=== PATIENT | female | born 2000 | race Caucasian/White ===

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

== ENCOUNTER 2021-01-07 17:00 | Emergency (ER) | payer OTHER, MEDICAID ==
[~2021-01-07] VITALS: Ht 154.9 cm; Wt 73.9 kg
[~2021-01-07 17:00] MED LIST changes: +REGLAN 10 MG TA10 MG PO
[2021-01-07] MEDS ORDERED: KEPPRA750 MG PO (17:21)
[2021-01-07] MEDS ORDERED: ENBRACE HR SOF1 EACH PO (17:21)
[2021-01-07 17:42] LABS: URINE BLOOD NEGATIVE (Negative); URINE CLARITY CLEAR; URINE COLOR YELLOW; URINE GLUCOSE-RANDOM TRACE (Negative); URINE KETONES 2+ (Negative); URINE LEUKOCYTES-REFLEX NEGATIVE (Negative); URINE NITRITE-REFLEX NEGATIVE (Negative); URINE PROTEIN TRACE (Negative); URINE SPECIFIC GRAVITY >= 1.030 (1.005-1.030); URINE UROBILINOGEN 0.2 E.U./dl (0.2-1.0)
[2021-01-07 17:47] LABS: ICTOTEST (BILI CONFIRMATORY) Negative (Negative); URINE BILIRUBIN 1+ (Negative)
[2021-01-07 18:08] VITALS: BP 125/65
== END 2021-01-07 18:08 | disposition home or self-care (01) ==
LOC: M.ERS 17:00
PROVIDERS: Nurse Practitioner Psychiatric/Mental Health
DX: O98.312 Other infections with a predominantly sexual mode of transmission complicating pregnancy, second trimester (principal); A56.8 Sexually transmitted chlamydial infection of other sites; F41.9 Anxiety disorder, unspecified; F32.9 Major depressive disorder, single episode, unspecified; Z3A.23 23 weeks gestation of pregnancy; Z79.899 Other long term (current) drug therapy; Z91.040 Latex allergy status; Z91.018 Allergy to other foods

== ENCOUNTER 2021-02-03 15:53 | Emergency (ER) | payer OTHER, MEDICAID ==
[~2021-02-03] VITALS: Ht 154.9 cm; Wt 69.0 kg
[~2021-02-03 15:53] MED LIST changes: +ENBRACE HR SOF1 EACH PO; +KEPPRA750 MG PO
[2021-02-03 16:21] LABS: URINE BILIRUBIN NEGATIVE (Negative); URINE BLOOD NEGATIVE (Negative); URINE CLARITY CLEAR; URINE COLOR YELLOW; URINE GLUCOSE-RANDOM NEGATIVE (Negative); URINE KETONES 3+ (Negative); URINE LEUKOCYTES-REFLEX NEGATIVE (Negative); URINE NITRITE-REFLEX NEGATIVE (Negative); URINE PROTEIN NEGATIVE (Negative); URINE SPECIFIC GRAVITY 1.025 (1.005-1.030); URINE UROBILINOGEN 0.2 E.U./dl (0.2-1.0)
[2021-02-03 16:51] VITALS: BP 119/65
== END 2021-02-03 16:52 | disposition home or self-care (01) ==
LOC: M.ERS 15:53
PROVIDERS: Physician Assistant
DX: O98.312 Other infections with a predominantly sexual mode of transmission complicating pregnancy, second trimester (principal); A74.9 Chlamydial infection, unspecified; F41.9 Anxiety disorder, unspecified; F32.9 Major depressive disorder, single episode, unspecified; Z3A.27 27 weeks gestation of pregnancy; Z79.899 Other long term (current) drug therapy; Z91.040 Latex allergy status; Z91.018 Allergy to other foods